=== PATIENT | female | born 1975 | race Caucasian/White ===

== ENCOUNTER 2021-08-30 21:41 | Inpatient (IN) | payer OTHER ==
[2021-08-30 23:12] VITALS: BMI 16.5
[2021-08-30] MEDS ORDERED: BENZOCAINE/MENTHOL (CHLORASEPTIC ) LOZENGE MM PRN (23:53)
[2021-08-30] MEDS ORDERED: NICOTINE 10 MG CARTRIDGE (INHALER) IH PRN (23:53)
[2021-08-30] MEDS ORDERED: METHOCARBAMOL 500 MG TABLET PO PRN (23:53)
[2021-08-30] MEDS ORDERED: ONDANSETRON *ODT* 4 MG TABLET SL PRN (23:53)
[2021-08-30] MEDS ORDERED: BISMUTH SUBSALICYLATE 524 MG/30 ML PO PRN (23:53)
[2021-08-30] MEDS ORDERED: ACETAMINOPHEN 325 MG TABLET (FP) PO PRN ×2 (23:53)
[2021-08-30] MEDS ORDERED: LOPERAMIDE HCL 2 MG CAPSULE PO PRN (23:53)
[2021-08-30] MEDS ORDERED: MAG HYDROX/AL HYDROX/SIMETH 30 ML UNIT-DOSE CUP PO PRN (23:53)
[2021-08-30] MEDS ORDERED: IBUPROFEN 400 MG TABLET (FP) PO PRN (23:53)
[2021-08-30] MEDS ORDERED: MAGNESIUM HYDROX 2400MG/30ML ORAL SUSPENSION 30 ML CUP PO PRN (23:53)
[2021-08-30] MEDS ORDERED: DICYCLOMINE HCL 10 MG CAPSULE PO PRN (23:53)
[2021-08-30] MEDS ORDERED: MAGNESIUM CITRATE 300 ML BOTTLE PO PRN (23:53)
[2021-08-31] MEDS ORDERED: diazePAM 5 MG TABLET ONE (01:36)
[2021-08-31] MEDS: diazePAM 5 MG TABLET PO SCH ×5 (01:37→22:51)
[2021-08-31] MEDS: diazePAM 5 MG TABLET PO PRN (01:38)
[2021-08-31] MEDS: levETIRAcetam 500 MG TABLET (FP) PO SCH ×3 (02:03→22:51)
[2021-08-31] MEDS: PRENATAL VITAMINS W/ FOLIC ACID TABLET (FP) PO SCH (11:17)
[2021-08-31] MEDS ORDERED: COLLOIDAL OATMEAL 1 BAR EACH TP PRN (12:31)
[2021-08-31 14:14] LABS: CALCIUM 9.1 mg/dL (8.5-10.1)
[2021-08-31 14:15] LABS: ALBUMIN 3.5 g/dl (3.4-5.0); BLOOD UREA NITROGEN 18.6 mg/dL (7-18)
[2021-08-31 14:18] LABS: CREATININE 0.7 mg/dL (0.55-1.3)
[2021-08-31 14:20] LABS: BILIRUBIN,TOTAL 0.4 mg/dL (0.2-1); TOT PROT 5.8 g/dl (6.4-8.2)
[2021-08-31 15:05] LABS: HIV INTERPRETATION NEGATIVE (NEGATIVE)
[2021-08-31] MEDS: hydrOXYzine PAMOATE 25 MG CAPSULE (FP) PO PRN ×2 (18:39→22:51)
[2021-08-31] MEDS: THIAMINE HCL 100 MG TABLET (FP) PO SCH (22:50)
[2021-08-31] MEDS: MELATONIN 5 MG TABLETS PO PRN (22:50)
[2021-09-01] MEDS: diazePAM 5 MG TABLET PO SCH ×3 (07:08→22:38)
[2021-09-01 10:02] LABS: HEMATOCRIT 39.6 % (32.4-45.2); MCH 34.1 pg (25.7-33.7); MEAN CELL VOLUME 103.4 fl (80-96); MEAN PLT VOLUME 7.3 fl (7.5-11.1); PLATELET COUNT 467 10^3/uL (134-434); RBC 3.83 M/mm3 (3.60-5.2); RDW 14.2 % (11.6-15.6)
[2021-09-01] MEDS: PRENATAL VITAMINS W/ FOLIC ACID TABLET (FP) PO SCH (11:04)
[2021-09-01] MEDS: levETIRAcetam 500 MG TABLET (FP) PO SCH ×2 (11:04→22:38)
[2021-09-01] MEDS ORDERED: PENICILLIN G BENZATHINE 2,400,000 UNIT/4 ML PFS IM ONE (13:16)
[2021-09-01] MEDS: CYANOCOBALAMIN 1,000 MCG TABLET (FP) PO SCH (15:33)
[2021-09-01] MEDS: diazePAM 5 MG TABLET PO PRN (17:50)
[2021-09-01] MEDS: THIAMINE HCL 100 MG TABLET (FP) PO SCH (22:38)
[2021-09-02] MEDS: diazePAM 5 MG TABLET PO SCH ×2 (05:58→18:10)
[2021-09-02] MEDS: levETIRAcetam 500 MG TABLET (FP) PO SCH ×2 (10:36→22:04)
[2021-09-02] MEDS: PRENATAL VITAMINS W/ FOLIC ACID TABLET (FP) PO SCH (10:36)
[2021-09-02] MEDS: CYANOCOBALAMIN 1,000 MCG TABLET (FP) PO SCH (10:36)
[2021-09-02] MEDS: diazePAM 5 MG TABLET PO PRN (11:44)
[2021-09-02] MEDS: hydrOXYzine PAMOATE 25 MG CAPSULE (FP) PO PRN ×2 (18:10→22:05)
[2021-09-02] MEDS: MELATONIN 5 MG TABLETS PO PRN (22:04)
[2021-09-02] MEDS: THIAMINE HCL 100 MG TABLET (FP) PO SCH (22:05)
[2021-09-03] MEDS ORDERED: diazePAM 5 MG TABLET PO ONE (06:00)
[2021-09-03 06:51] VITALS: BP 100/60; PULSE 64; TEMP 96
[2021-09-03] MEDS: levETIRAcetam 500 MG TABLET (FP) PO SCH (09:19)
[2021-09-03] MEDS: CYANOCOBALAMIN 1,000 MCG TABLET (FP) PO SCH (09:20)
[2021-09-03] MEDS: PRENATAL VITAMINS W/ FOLIC ACID TABLET (FP) PO SCH (09:20)
== END 2021-09-03 10:15 | disposition home or self-care (01) | DRG 774 ==
LOC: YASAS 21:41 → Y6N 23:57
PROVIDERS: ADMIT Allergy & Immunology; ATTEND Allergy & Immunology
PROC: HZ2ZZZZ Detoxification Services for Substance Abuse Treatment (ICD-10-PCS; principal; 2021-08-30)
DX: F10.230 Alcohol dependence with withdrawal, uncomplicated (principal); F14.20 Cocaine dependence, uncomplicated; F12.20 Cannabis dependence, uncomplicated; F17.213 Nicotine dependence, cigarettes, with withdrawal; F31.9 Bipolar disorder, unspecified; G40.909 Epilepsy, unspecified, not intractable, without status epilepticus; Z86.19 Personal history of other infectious and parasitic diseases
CPT/HCPCS: 36415; 80053; 80177; 81025; 85027; 86593; 86780; 87389; 87811; C9803-CS; U0003; U0005